=== PATIENT | male | born 1985 | race Caucasian/White ===

== ENCOUNTER 2025-03-23 13:32 | Outpatient (AMB) | payer OTHER, SELFPAY ==
--- NOTE | 2025-03-23 13:36 | A.OFFPC_ITS ---
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 Presenting with chronic pain management, asthma, and hip pain. Patient has chronic pain related to multiple procedures and an accident many years ago. He has history of a cervical fracture that was previously considered for surgery however patient was incarcerated which complicated the healing course. He was previously on several different pain medications including; gabapentin, tramadol, Flexeril, ibuprofen and Tylenol. He has a history of hip pain with a popping sensation swelling persistent over the last 15 years. The patient experiences numbness and tingling in the toes, possibly related to plantar fasciitis, and has been advised to use special insoles and perform exercises. Has a history of asthma and does not currently have any inhalers. He does continue to smoke cigarettes daily for anxiety relief and is interested in quitting but is not interested in medication or nicotine replacement therapy at this time. He has tried Wellbutrin in the past and did not like the side effects. COUNTS INCLUDE 234 BEDS AT THE [facility] Medical History (Updated 03/23/25 @ 17:24 by Lizbeth Zapata PA-C) Pericarditis Asthma Dislocation of right shoulder joint Dislocation, acromioclavicular Surgical History H/O hernia repair S/P rotator cuff repair Family History Other Asthma Heart problem High blood pressure affecting in first trimester, antepartum Social History Household Members: Other Household Members Other:: mother Housing: Condominium Are you a primary pet care technician to a significant other at home: No Do you presently have visiting nurse or other home services: No Alcohol intake: never Patient Tobacco Use Status: Current everyday Tobacco user Tobacco use type: Cigarette Cigarette Packs Per Day: 1 Cigarettes Per Day: 10 Years Smoked: 25 e-Cigarette/Vaping Use: Former Use Substance Use Type: Crack/Cocaine and Marijuana service: No Current occupational status: unemployed Questionnaire PHQ-9 Over the last 2 weeks, how often have you been bothered by any of the following problems? 1. Little interest or pleasure in doing things: nearly every day 2. Feeling down, depressed, or hopeless: nearly every day 3. Trouble falling or staying asleep, or sleeping too much: more than half the days 4. Feeling tired or having little energy: nearly every day 5. Poor appetite or overeating: nearly every day 6. Feeling bad about yourself - or that you are a failure or have let yourself or your family down: several days 7. Trouble concentrating on things, such as reading the newspaper or watching television: not at all 8. Moving or speaking so slowly that other people could have noticed. Or the opposite - being so fidgety or restless that you have been moving around a lot more than usual: nearly every day 9. Thoughts that you would be better off or of hurting yourself in some way: nearly every day Total score: 21 Depression Screening Interpretation: Positive Depression Screening Follow-up: Existing condition and In treatment Depression Screening Done: Yes 20605 - PHQ-9 Billing: Yes Source: Developed by Drs. Aaron Trinidad, Lorri Espinoza, Chuckie Whitley and colleagues, with an educational jesus alberto from [employer]. Thrive Questionnaire Date Thrive assessed: 03/23/25 I am a: Patient What is your living situation today?: I have a place to live, but I am worried about losing it in the future Within the past 12 months, did the food you bought not last and you didn't have the money to get more?: Sometimes True Within the past 12 months, did you worry whether your food would run out before you got money to buy more?: Sometimes True Do you have trouble paying for medicines?: Yes Do you have trouble getting transportation to medical appointments?: No Do you have trouble paying your heating and electricity bill?: No Do you have trouble taking care of your child, family member or friend?: No Do you have trouble with day-to-day activities such as bathing, preparing meals, shopping, managing finances, etc.?: No Are you currently unemployed and looking for a job?: No Are you interested in more education?: No Please select the resources that you would like help with: Housing/[facility], Paying for medicine, Daily support, Job search/training and Education Currently or been in a relationship where the following occur: Controlled Emotionally THRIVE Score: 4 AUDIT C Alcohol Use Questionnaire (AUDIT-C) 1. How often do you have a drink containing alcohol?: Monthly or less 2. How many drinks containing alcohol do you have on a typical day when you are drinking?: 5 or 6 3. How often do you have six or more drinks on one occasion?: Never Total Score: 3 CY-7 AMB Questionnaire CY-7 Date CY - 7 assessed: 03/23/25 Feeling nervous, anxious, or on edge: 3 = Nearly every day Not being able to stop or control worryin = Nearly every day Worrying too much about different things: 3 = Nearly every day Trouble relaxin = Nearly every day Being so restless that it is hard to sit still: 3 = Nearly every day Becoming easily annoyed or irritable: 3 = Nearly every day Feeling afraid as if something awful might happen: 0 = Not at all Total CY-7 score (0-4 normal; 5-9 mild; 10-14 moderate; 15-21 severe): 18 Source: Developed by Drs. Aaron Trinidad, Lorri Espinoza, Chuckie Whitley and colleagues, with an educational jesus alberto from [employer]. CY-7 Assessment Billing CY-7 Assessment Tool: CY-7 Assessment 70066 Review of Systems Const Denies body aches, Denies chills, Denies fever(s), Reports headache(s) (occasional ) and Denies poor appetite Eyes Reports no additional complaints ENT Denies dizziness and Reports headache(s) (occasional ) Card Denies chest pain, Denies syncope, Denies edema, Denies irregular heart rhythm, Denies lightheadedness and Denies dyspnea Resp Denies dyspnea GI Denies abdominal pain, Denies nausea and Denies vomiting Reports no additional complaints Musc Reports as per HPI and Reports abnormal gait Skin/Breast Reports system reviewed and no additional complaints, except as documented Neuro Reports abnormal gait, Denies dizziness, Denies syncope and Reports headache(s) (occasional ) Psych Reports no additional complaints Physical exam (Primary Care) Vital Signs: Last Vital Signs Pulse 68 03/23/25 13:37 BP 114/72 03/23/25 13:37 Pulse Ox 95 03/23/25 13:37 BMI result Body Mass Index 37.3 Tobacco/Smoking Status: Tobacco use Status Patient Tobacco Use Status Current everyday Tobacco 03/23/25 14:09 Tobacco use type Cigarette 03/23/25 13:50 e-Cigarette/Vaping Use Former Use 03/23/25 13:50 PHQ-9: PHQ-9 Score PHQ-9: Total score 21 03/23/25 14:06 Depression Screening Interpretation: Positive Depression Screening Follow-up: Existing condition and In treatment Thrive Assessment: Date of Thrive Assessment Date Thrive assessed 03/23/25 03/23/25 13:50 Currently or been in a relationship where the following occur: Controlled Emotionally Const General: cooperative, healthy appearing, comfortable and no acute distress Orientation/consciousness: patient oriented x3 HENMT Head: Yes normocephalic Ears: hearing grossly normal bilaterally General nose exam: Normal external nose present Eyes General: appearance normal, both eyes and all related structures Conjunctivae: conjunctivae normal Neck Neck: Yes full ROM and Yes no lymphadenopathy Resp Effort & Inspection: normal respiratory effort Auscultation: clear to auscultation bilaterally, no crackles, no rales, no rhonchi and no wheezes Cardio Rate: regular rate Rhythm: regular rhythm Back/Spine/Pelvis Other: Mild swelling over the left hip. Tenderness to palpation over cervical spine. Skin General skin exam: no rashes or lesions noted Neuro General: patient oriented x3 Gait exam (Neuro): Normal gait present Extrem Other: Intact strength and sensation of bilateral lower extremities General: Yes normal to inspection, Yes full ROM and No edema Psych Affect: normal affect Attitude: cooperative Insight: Good insight present (Psych) Judgement: Good judgement present (Psych) Coding Level of Care Code New Pt Level 4 (02434) Diagnoses Anxiety F41.9 Depression F32.A Tobacco use Z72.0 Back pain M54.9 Neck pain M54.2 Chronic pain G89.29 Neuropathy G62.9 Asthma J45.909 Plantar fasciitis M72.2 Obesity (BMI 35.0-39.9 without comorbidity) E66.9 Additional Codes CY-7 Assessment Billing - CY-7 Assessment Tool: CY-7 Assessment 11307 ([id number]) PHQ-9 - 15987 - PHQ-9 Billing: Yes ([id number]) Assessment & Plan Assessment & Plan (1) Anxiety: Comment: [facility] 03/2025 Code(s): F41.9 - Anxiety disorder, unspecified Category: Medical Plan: Patient has a history of anxiety and depression and has been treated in the past however he does not like antidepressants or antianxiety medication. Offered counseling referral which was declined as he is currently following with [facility] at this time. (2) Depression: Code(s): F32.A - Depression, unspecified Category: Medical Plan: See above (3) Tobacco use: Code(s): Z72.0 - Tobacco use Category: Social Hx Plan: Smoking cigarettes and the use of tobacco can be harmful. We discussed the importance of stopping and options to aid in smoking cessation. Declining nicotine replacement therapy or medication management at this time. (4) Back pain: Code(s): M54.9 - Dorsalgia, unspecified Category: Medical Plan: Patient has chronic neck, back and shoulder pain related to an accident that happened many years ago. He was previously being seen by pain management prior to incarceration and consideration was being made for implantable devices for pain and nerve stimulation. Use previously on gabapentin which did help with the pain and neuropathy symptoms. Plan to start on 300 mg twice daily for pain and consider increasing dose as he was previously on 800 mg t.i.d.. Referral was placed to pain management today as well. Plan to obtain x-rays of the cervical, thoracic and lumbar spine (5) Neck pain: Code(s): M54.2 - Cervicalgia Category: Medical Plan: See above (6) Chronic pain: Code(s): G89.29 - Other chronic pain Category: Medical Plan: See above (7) Neuropathy: Code(s): G62.9 - Polyneuropathy, unspecified Category: Medical Plan: Plan to start on gabapentin 300 mg twice daily for neuropathy. (8) Asthma: Code(s): J45.909 - Unspecified asthma, uncomplicated Category: Medical Plan: Asthma currently controlled on present medications. Restart on albuterol as needed. Avoid triggers such as allergies. Strongly advised to stop smoking (9) Plantar fasciitis: Code(s): M72.2 - Plantar fascial fibromatosis Category: Medical Plan: Patient has symptoms concerning for plantar fasciitis. He was given a handout of stretching exercises for the feet and advised to obtain insoles and avoid prolonged standing. (10) Obesity (BMI 35.0-39.9 without comorbidity): Code(s): E66.9 - Obesity, unspecified Category: Medical Plan: Healthy diet and regular exercise is encouraged. Patient was counseled today on the risks and benefits of GLP-1 injections as well as the dosing schedule. She has no family history or personal history of thyroid disease and no gallbladder disease. Discussed with the patient the potential GI side effects of this medication. Plan to have repeat blood work after one month of therapy to monitor kidney and liver function before increasing the dose of this medication. Follow up in 2 months for a weight check. Prescription sent for Mounjaro Plan The patient will continue with the current pain management regimen, with a potential increase in dosage after a week, depending on tolerance and sedation levels. Pain management will contact the patient to schedule an appointment for further evaluation and management of chronic pain. For asthma management, a new inhaler has been prescribed to the patient. The patient is advised to monitor symptoms and report any exacerbations. Regarding tobacco use, the patient is interested in quitting and has been informed about nicotine replacement the rapies, including gums and patches. The patient is encouraged to reduce smoking and consider these options to aid cessation. An x-ray has been suggested for the left hip to evaluate persistent pain and swelling. The patient is advised to follow up with the results and consider physical therapy as a potential intervention. For plantar fasciitis, the patient is advised to use special insoles and perform recommended exercises to alleviate symptoms. Heating pads and supportive footwear are also recommended to manage discomfort. This note was constructed using voice recognition software. While every effort has been made to ensure accuracy and fire claims adjuster, still areas may have been included sometimes these areas may affect the content or meeting of the given symptoms. Total time spent caring for the patient today was 30 minutes. This includes time spent before the visit reviewing the chart, time spent during the visit, and time spent after the visit and documentation. Patient was informed and verbally consented to the use of an ambient scribe for clinic note documentation during this visit. Orders: Orders XR thoracic spine 2V Today M54.9 - Dorsalgia, unspecified XR lumbar spine 2-3V Today M54.9 - Dorsalgia, unspecified TSH reflex Free T4 Today Z00.00 - Encounter for general adult medical examination without abnormal findings, Z13.29 - Encounter for screening for other suspected endocrine disorder Lipid Panel Today E78.00 - Pure hypercholesterolemia, unspecified, Z13.220 - Encounter for screening for lipoid disorders Hemoglobin A1c Today E11.65 - Type 2 diabetes mellitus with hyperglycemia, G62.9 - Polyneuropathy, unspecified XR hip LT min 2V Today M25.552 - Pain in left hip XR cervical spine 2V Today M54.2 - Cervicalgia Free T4 (Free Thyroxine) Today Z00.00 - Encounter for general adult medical examination without abnormal findings, Z13.29 - Encounter for screening for other suspected endocrine disorder Vitamin B12 and Folate Today Z13.21 - Encounter for screening for nutritional disorder Vitamin D 25-OH Total Today Z13.21 - Encounter for screening for nutritional disorder Comprehensive Met. Panel Today G62.9 - Polyneuropathy, unspecified, Z00.00 - Encounter for general adult medical examination without abnormal findings Complete Blood Count Auto Diff Today G62.9 - Polyneuropathy, unspecified, Z00.00 - Encounter for general adult medical examination without abnormal findings Referrals Pain Management Referral G62.9 - Polyneuropathy, unspecified, G89.29 - Other chronic pain, M54.2 - Cervicalgia, M54.9 - Dorsalgia, unspecified Medications: New gabapentin 300 mg PO BID 60 caps 0RF tirzepatide (Mounjaro) for 4 weeks 2.5 mg (0.5 mL) subcut QWEEK 2 mL 0RF albuterol sulfate 90 mcg/actuation (Ventolin HFA) 1 inh inhalation QID PRN 6.7 grams 0RF shortness of breath or wheezing
[2025-03-23 13:37] VITALS: BP 114/72; PULSE 68; O2SAT 95; BMI 37.3
== END 2025-03-23 14:30 | disposition home or self-care (01) ==
LOC: HO.HMCH 13:33
DX: M54.9 Dorsalgia, unspecified (principal); F41.9 Anxiety disorder, unspecified; E66.9 Obesity, unspecified; Z68.37 Body mass index [BMI] 37.0-37.9, adult; M72.2 Plantar fascial fibromatosis; F32.A Depression, unspecified; Z72.0 Tobacco use; M54.2 Cervicalgia; G89.29 Other chronic pain; G62.9 Polyneuropathy, unspecified; J45.909 Unspecified asthma, uncomplicated

== ENCOUNTER → 2025-03-23 13:32 | Outpatient (BNVA) | payer OTHER, SELFPAY | DX: M25.551 Pain in right hip (principal); J45.909 Unspecified asthma, uncomplicated; F41.9 Anxiety disorder, unspecified; F32.A Depression, unspecified; M54.9 Dorsalgia, unspecified; G89.29 Other chronic pain; M72.2 Plantar fascial fibromatosis; E66.9 Obesity, unspecified; E78.00 Pure hypercholesterolemia, unspecified; E11.65 Type 2 diabetes mellitus with hyperglycemia; E11.40 Type 2 diabetes mellitus with diabetic neuropathy, unspecified; M25.552 Pain in left hip; M54.2 Cervicalgia; F17.210 Nicotine dependence, cigarettes, uncomplicated; Z68.37 Body mass index [BMI] 37.0-37.9, adult | CPT/HCPCS: 96127; 99202 ==